=== PATIENT | female | born 1965 | race Caucasian/White ===

== ENCOUNTER → 2020-04-15 09:05 | Outpatient (CLI) | payer BC, SELFPAY ==
--- NOTE | ~2020-04-15 | DEXA_ITS ---
Corrected Repor Order Associated with incorrect exam # 04/18/2020 [facility] Bone Density Report Name: Kandice Hoang Age: 54 Sex: Female Ethnicity: White Date of : 1965 Indication: postmenopausal; screening for osteoporosis; Referring Provider: Bhumika Polanco Study: Bone densitometry was performed. Exam Date: April 15, 2020 Accession number: [id number] Bone Density: Region BMD T-score Z-score Classification AP Spine (L1-L4) 1.003 -0.4 0.7 Normal Femoral Neck (Left) 0.761 -0.8 0.3 Normal Total Hip (Left) 0.869 -0.6 0.1 Normal Femoral Neck (Right) 0.795 -0.5 0.6 Normal Total Hip (Right) 0.853 -0.7 -0.1 Normal Total Hip Mean 0.861 -0.7 0.0 Normal World Health Organization criteria for BMD impression classify patients as: Normal (T-score at or above -1.0), Osteopenia (T-score between -1.0 and -2.5), or Osteoporosis (T-score at or below -2.5). 10-year Fracture Risk: FRAX not reported because: All T-scores for Spine Total, Hip Total, Femoral Neck at or above -1.0 Clinical Information Provided by Patient: Patient maximum height was 62.25 Menopause Age: 53 No regular weight bearing exercise Does not regularly consume dairy products Drinks caffeinated beverages Onset of menses at age 13 Number of children 2 Impression: The patient has normal bone mass. Discussion: BONE DENSITY IS ABOVE THE MINIMUM DESIRABLE LEVEL AT ALL SKELETAL SITES TESTED. This patient?s bone mineral density is above the minimum desirable level (T-score -1.0 or better) at all sites measured. The patient should follow a healthful lifestyle (good nutrition with adequate calcium and vitamin D, and appropriate weight-bearing exercise). Follow-Up: Consider repeating this study in 5 years or sooner if there is some new clinical indication. Reported by: EDELMIRA on 04/15/2020 9:50:00 AM. Reviewed, dictated and finalized at location AJhoana GARCIA
--- NOTE | ~2020-04-15 | MM_ITS ---
EXAMINATION: MM screening alycia BI w nereida HISTORY: Screening mammogram TECHNIQUE: Craniocaudal and mediolateral oblique 3-D tomosynthesis images were obtained and synthetic 2-D images were generated. CAD analysis was submitted and interpreted. COMPARISON: 04/13/2014, 06/23/2012 bilateral digital screening mammogram examinations BREAST PARENCHYMAL COMPOSITION: There are scattered areas of fibroglandular density. FINDINGS: There is no evidence of suspicious mass, calcification, or architectural distortion to sugg est malignancy in either breast. There has been no suspicious interval change. IMPRESSION: 1. No mammographic evidence of malignancy. 2. Recommend routine screening mammography in one year. BI-RADS Category 1: Negative Reviewed, dictated and finalized at location A.
== END ==
PROVIDERS: Visit Provider Student in an Organized Health Care Education/Training Program
DX: Z12.31 Encounter for screening mammogram for malignant neoplasm of breast (principal); Z78.0 Asymptomatic menopausal state
CPT/HCPCS: 77063; 77067; 77080

== ENCOUNTER → 2021-09-29 01:26 | Outpatient (CLI) | payer BC, SELFPAY ==
[2021-09-29 13:33] LABS: SARS-CoV-2 RNA PCR Negative
== END ==
PROVIDERS: PCP Internal Medicine; Visit Provider Internal Medicine Gastroenterology
DX: Z01.812 Encounter for preprocedural laboratory examination (principal); Z20.822 Contact with and (suspected) exposure to COVID-19
CPT/HCPCS: C9803; U0003; U0005

== ENCOUNTER 2021-10-02 00:12 | Day surgery (SDC) | payer BC, SELFPAY ==
[2021-09-20 12:58] VITALS: BMI 26.2
--- NOTE | 2021-10-01 11:03 | P.HP_ITS ---
History of Present Illness History of Present Illness Consent: Risks, benefits, and alternatives have been discussed and questions answered. Patient agrees to proceed with procedure. Chief complaint: neoplasm screening Narrative: Kandice Hoang is a 56 year old female referred for colon cancer screening. This is her 1st colonoscopy Review of Systems Review of Systems: All systems reviewed & are unremarkable except as noted in HPI and below PMFSH Past Medical History Medical History Essential (primary) hypertension Vaginal delivery x 2 Surgical History Surgical History History of cholecystectomy [place] teeth removed Family History Family History Mother Hypertension Family history of blood dyscrasia Family history of thyroid disease Cerebrovascular accident Grandparent Family history of malignant neoplasm of breast in first degree relative Social History Social History Smoking status: Never smoker Second hand tobacco smoke exposure: No Alcohol intake: current Drinks per week: 1 Substance use type: does not use Living arrangements: with family Spiritual care concerns: No Meds Home Medications and Allergies Home Medications Medication Instructions Recorded Confirmed Type loratadine 10 mg tablet 10 mg PO DAILY 07/14/19 10/02/21 History fluticasone propionate 50 2 spray NASAL DAILY PRN #47.4 ml 07/15/19 10/02/21 Rx mcg/actuation nasal spray,suspension esomeprazole magnesium 40 mg 40 mg PO DAILY #90 cap 08/02/20 10/02/21 Rx capsule,delayed release lisinopril 10 mg tablet 10 mg PO DAILY #90 tablet 04/06/21 10/02/21 Rx Allergies Allergy/AdvReac Type Severity Reaction Status Date / Time Sulfa (Sulfonamide Allergy Mild hives Verified 10/02/21 07:42 Antibiotics) Exam Const: General: alert Orientation/consciousness: patient oriented x3 Resp: Auscultation: clear to auscultation bilaterally Cardio: Rhythm: regular rhythm GI: GI Palp: Yes Soft to palpation and No Tenderness to palpation present (GI) Neuro: General: patient oriented x3 Assessment and Plan Assessment and plan (1) Colon cancer screening: Code(s): Z12.11 - Encounter for screening for malignant neoplasm of colon Status: Acute Assessment and Plan: Colonoscopy with possible biopsy or polypectomy or cautery or injection of substances.
[2021-10-02 07:43] VITALS: BP 91/75; PULSE 87; RESP 16; TEMP 37.1; O2SAT 98; BMI 25.6
[2021-10-02] MEDS: LACTATED RINGERS 1,000 ML 150 ML IV CONT (07:51)
--- NOTE | 2021-10-02 08:10 | WPDANESEPPF ---
Anes - Initial Pre Proc Eval Procedure: Operation Date: 10/02/21 09:00 Proposed Procedures p Screening Colonoscopy - Danie Aguilar MD Date/Time: 10/02/21 08:10 Surgeon: Danie Aguilar MD Pre Op Diagnosis: neoplasm screening Patient Data Age: 56 Gender: F Height: 1.57 m Weight: 63.6 kg Last Vital Signs Temp 98.7 F 10/02/21 07:43 Pulse 87 10/02/21 07:43 Resp 16 10/02/21 07:43 BP 91/75 L 10/02/21 07:43 Pulse Ox 98 10/02/21 07:43 Allergies Allergy/AdvReac Type Severity Reaction Status Date / Time Sulfa (Sulfonamide Allergy Mild hives Verified 10/02/21 07:42 Antibiotics) Home Medications Medication Instructions Recorded Confirmed Type loratadine 10 mg tablet 10 mg PO DAILY 07/14/19 10/02/21 History fluticasone propionate 50 2 spray NASAL DAILY PRN #47.4 ml 07/15/19 10/02/21 Rx mcg/actuation nasal spray,suspension esomeprazole magnesium 40 mg 40 mg PO DAILY #90 cap 08/02/20 10/02/21 Rx capsule,delayed release lisinopril 10 mg tablet 10 mg PO DAILY #90 tablet 04/06/21 10/02/21 Rx Patient hx anesthesia problems: none Family hx anesthesia problems: none Results Review: All pre-operative results and documents have been reviewed as part of the pre-operative evaluation. PMFSH Past Medical History Medical History Essential (primary) hypertension Vaginal delivery x 2 Surgical History Surgical History History of cholecystectomy [place] teeth removed Family History Family History Mother Hypertension Family history of blood dyscrasia Family history of thyroid disease Cerebrovascular accident Grandparent Family history of malignant neoplasm of breast in first degree relative Social History Social History Smoking status: Never smoker Second hand tobacco smoke exposure: No Alcohol intake: current Drinks per week: 1 Substance use type: does not use Living arrangements: with family Spiritual care concerns: No Anes - Eval Final PreProcedure Day of Procedure 10/02/21 08:10 Patient weight: normal Heart: regular rate and rhythm Lungs: clear to auscultation Airway: Mallampati scale class II Neurological: alert and oriented Last oral intake: >/= 8 hours ASA classification: II Emergent: no Anesthetic plan: proceed Anesthesia type and monitoring: general GIVS and standard monitoring Results Review: All pre-operative results and documents have been reviewed as part of the pre-operative evaluation. Informed Consent: The patient's anesthetic plan and its attendant risks and benefits were discussed with the patient/family/POA. Questions were solicited and answers provided to the satisfaction of the patient/family/POA.
[2021-10-02] MEDS: SIMETHICONE ORAL SUSPENSION 20 MG/0.3 ML 30 ML BOTTLE 0.6 ML IRRIGATION (08:52)
[2021-10-02 09:06] VITALS: BP 97/69; PULSE 97; RESP 16; O2SAT 97
[2021-10-02 09:16] VITALS: BP 111/76; PULSE 77; RESP 15; O2SAT 100
[2021-10-02 09:26] VITALS: BP 127/76; PULSE 77; RESP 17; O2SAT 100
== END 2021-10-02 09:35 | disposition home or self-care (01) ==
PROVIDERS: PCP Internal Medicine; Visit Provider Internal Medicine Gastroenterology
PROC: 0DJD8ZZ Inspection of Lower Intestinal Tract, Via Natural or Artificial Opening Endoscopic (ICD-10-PCS; CPT 45378; principal; 2021-10-02 09:00)
DX: Z12.11 Encounter for screening for malignant neoplasm of colon (principal); K62.1 Rectal polyp; I10 Essential (primary) hypertension
CPT/HCPCS: 45380; 88305; C9803; J2704; J7120; U0003; U0005

== ENCOUNTER 2021-10-21 07:32 | Outpatient (CLI) | payer BC, SELFPAY ==
--- NOTE | 2021-10-21 07:36 | ECG_ITS ---
Measurements Intervals [place] Rate: 72 P: 15 [place]: 140 QRS: 51 QRSD: 82 T: 59 QT: 388 QTc: 425 Interpretive Statements SINUS RHYTHM NO PREVIOUS ECG AVAILABLE FOR COMPARISON Electronically Signed On 10-21-2021 13:33:30 CDT by Puja Solis M.D.
[2021-10-21 09:10] LABS: SARS-CoV-2 RNA PCR Negative (Negative)
== END 2021-10-21 07:33 | disposition home or self-care (01) ==
LOC: CHSCARD 07:36
PROVIDERS: PCP Internal Medicine; Visit Provider Surgery
DX: Z01.818 Encounter for other preprocedural examination (principal); I10 Essential (primary) hypertension; Z20.822 Contact with and (suspected) exposure to COVID-19
CPT/HCPCS: 93005; C9803; U0003; U0005

== ENCOUNTER 2021-10-25 01:18 | Day surgery (SDC) | payer BC, SELFPAY ==
[2021-10-16 13:50] VITALS: BMI 25.5
--- NOTE | 2021-10-16 14:11 | PC.NURSE ---
Report to the Outpatient Waiting Room, entrance under the green pavilion located off [facility], at time _0730_ on date _10-25-2021_. OR Time: _0930_. - You and your visitor will be asked a series of questions to screen for COVID 19 for your protection. - A mask is required within the hospital. Preoperative COVID Testing Requirements: Covid test to be done at [place] 10-21-2021. No COVID Test needed if: (proof is required; if not received patient will have Rapid Test prior to entry) - Patient has received COVID Vaccine at least 14 days prior to procedure date or - Patient has positive COVID test result within last 90 days of surgery date. COVID Test needed if above criteria is not met If not COVID vaccinated a COVID test must be conducted within 72 hours of surgery and patient is asked to isolate self from time of testing until procedure. You will go to the [facility] for your COVID testing. The [facility] site is located at the corner of [address] from [facility]. You will only be called if COVID results are positive and your surgeon may reschedule your elective surgery date. Patients may have clear liquids (water, carbonated beverages, clear teas, apple juice) until 3 hours prior to surgery with a maximum of 20 ounces. - No food from midnight until time of surgery - Infants may have breast milk until 4 hours before surgery, formula 6 hours prior to surgery. - Children will be allowed to drink immediately following surgery. If applicable, please bring a bottle or sippy cup to assist with drinking. Juice, water, soda, and popsicles are readily available. For infants on formula, please bring formula the day of surgery. Pacifiers are allowed. Take the following medications with a SIP of water the morning of surgery: ___None Medications to discontinue per physician __1-Db Goddess and 1 Db Thyro-drive Date to take last [id number] Please no make-up, nail nepali, hairspray, perfume, deodorant, or body powder the day of surgery. No jewelry (including any body piercings) or valuables the day of surgery, leave them at home. Please take a shower or bath the night before, or the morning of, surgery with an antibacterial soap. Wear comfortable, loose fitting clothing. Children are encouraged to wear pajamas. - Jewelry must be removed prior to entering the operating room. Rings and piercings that are not removed may be cut off. - The hospital will not accept responsibility for valuables. - Please leave all valuables, including medications, at home the day of surgery. If you are going home after surgery, a licensed company truck driver must drive you home. - NO public transportation without another adult. - We recommend that an adult stay with you for 24 hours following discharge. - We also recommend that you do not drive, make important decision, drink alcoholic beverages, or take any drugs that were not prescribed by your health care provider for at least 24 hours after your discharge time. For Pediatric surgeries, we recommend two adults accompany the child home (only one inside the building at this time). One visitor will be allowed to accompany the patient into the hospital. Patients visitor will be instructed to remain with patient at all times or leave the building. We will allow the visitor to come back to the postoperative area when patient is ready. Follow any additional instructions given to you from your surgeon. Telephone instructions given to __Patient and asked if any additional questions and then verbalized understanding. Patient advised to call surgeon office or pre surgery nurse liaison [phone] if any additional questions.
[2021-10-25] VITALS (7 sets, daily range): BP systolic 112–137; BP diastolic 68–81; PULSE 61–80; RESP 11–16; TEMP 36.3–36.5; O2SAT 96–100
[2021-10-25] MEDS: LACTATED RINGERS 1,000 ML 30 ML IV CONT ×2 (08:00→10:41)
[2021-10-25] MEDS: ACETAMINOPHEN 500 MG TABLET 1000 MG PO (08:02)
[2021-10-25] MEDS: KETOROLAC 15 MG/ML VIAL (*BKC) IV PUSH (08:02)
--- NOTE | 2021-10-25 09:34 | WPDHPUPDATE1 ---
History and Physical Update Update Date/Time: 10/25/21 09:34 History and Physical has been reviewed, including an updated exam of the patient. There are NO changes in the patient's condition. Risks, benefits, and alternatives have been discussed and questions answered. Patient agrees to proceed with procedure.
--- NOTE | 2021-10-25 09:45 | WPDANESEPPF ---
Anes - Initial Pre Proc Eval Procedure: Operation Date: 10/25/21 09:30 Proposed Procedures p Rectal Exam Under Anesthesia, Excision Rectal Polyp - Torres Sepulveda DO Date/Time: 10/25/21 09:45 Surgeon: Torres Sepulveda DO Pre Op Diagnosis: rectal polyp Patient Data Age: 56 Gender: F Height: 1.57 m Weight: 65.8 kg Last Vital Signs Temp 36.3 C L 10/25/21 07:37 Pulse 76 10/25/21 07:37 Resp 16 10/25/21 07:37 BP 137/81 10/25/21 07:37 Pulse Ox 100 10/25/21 07:37 Allergies Allergy/AdvReac Type Severity Reaction Status Date / Time Sulfa (Sulfonamide Allergy Mild hives Verified 10/25/21 08:06 Antibiotics) Home Medications Medication Instructions Recorded Confirmed Type loratadine 10 mg tablet 10 mg PO DAILY 07/14/19 10/25/21 History fluticasone propionate 50 2 spray NASAL DAILY PRN #47.4 ml 07/15/19 10/25/21 Rx mcg/actuation nasal spray,suspension esomeprazole magnesium 40 mg 40 mg PO DAILY #90 cap 08/02/20 10/25/21 Rx capsule,delayed release lisinopril 10 mg tablet 10 mg PO DAILY #90 tablet 10/03/21 10/25/21 Rx 1=Db Goddess 1 tab-cap PO DAILY 10/16/21 10/25/[address] 1 tab-cap PO DAILY 10/16/21 10/25/21 History Patient hx anesthesia problems: none Family hx anesthesia problems: none Results Review: All pre-operative results and documents have been reviewed as part of the pre-operative evaluation. [facility] Past Medical History Medical History Essential (primary) hypertension GERD (gastroesophageal reflux disease) Kidney stones Vaginal delivery x 2 Surgical History Surgical History History of cholecystectomy [place] teeth removed Family History Family History Mother Hypertension Family history of thyroid disease Cerebrovascular accident Grandparent Family history of malignant neoplasm of breast in first degree relative Social History Social History Smoking status: Never smoker Second hand tobacco smoke exposure: No Alcohol intake: current Alcohol use details: Rarely Substance use: never Substance use type: does not use 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 Informed Consent: The patient's anesthetic plan and its attendant risks and benefits were discussed with the patient/family/POA. Questions were solicited and answers provided to the satisfaction of the patient/family/POA.
[2021-10-25] MEDS: ceFAZolin 2 GM/D5W 50 ML 2 GM/50 ML BAG IVPB (09:59)
--- NOTE | 2021-10-25 10:29 | P.OP_ITS ---
Procedure Note - Detailed Date of Procedure 10/25/21 Pre-op Diagnosis rectal polyp Post-op Diagnosis Same Procedure Performed Rectal exam under anesthesia, excision 2 cm distal rectal polyp Surgeon Torres Sepulveda, DO Anesthesia MAC (LMA) Indications This is a 56-year-old woman who was found to have a distal rectal polyp on recent colonoscopy. This was a slightly larger polyp that was too close to the anal verge to safely remove during endoscopy. She was then referred for surgical resection. On digital rectal exam the polyp was palpable in the left posterior location. Discussions were made with the patient about treatment options and decision was made to proceed with rectal exam under anesthesia with excision of rectal polyp. Findings Rectal exam under anesthesia was performed. The rectal polyp was identified in the left posterior location. This was located about 1 cm proximal to the dentate line. The polyp was completely excised and sent to the lab for pathology. No other rectal abnormalities were noted. Description of Procedure Procedure as well as risks, benefits, and alternatives were discussed with the patient. Written consent was obtained and placed in chart prior to procedure. Patient was brought back to surgical suite. She was placed supine on operating table. Time-out was done to confirm patient and procedure. IV sedation was administered by the anesthesia department. She was positioned into dorsal lithotomy position. Her perirectal area was prepped and draped in sterile fashion using Betadine prep. Digital rectal exam was initially performed. A Hill-Ricketts anoscope was then inserted and the anal rectal canal was carefully inspected circumferentially. The rectal polyp was identified in the left posterior location about 1 cm proximal to the dentate line. The polyp was gently lifted into the lumen and a LigaSure bipolar cautery device was used to clamp across the base of the polyp and completely excise it. The polyp was completely excised and sent to the lab for pathology. The area was carefully inspected and hemostasis appeared adequate and no other abnormalities were noted. The anoscope was then removed. The patient was then awakened from an esthesia and transferred to recovery. Estimated Blood Loss 2 Pathology Yes (Rectal polyp) Complications No immediate complications Condition Stable Disposition Same day
== END 2021-10-25 11:52 | disposition home or self-care (01) ==
PROVIDERS: PCP Internal Medicine; Visit Provider Surgery
PROC: (CPT 46610; principal; 2021-10-25 09:30)
DX: C19 Malignant neoplasm of rectosigmoid junction (principal); I10 Essential (primary) hypertension; K21.9 Gastro-esophageal reflux disease without esophagitis
CPT/HCPCS: 46610; 88305; A9270; C9290; J0690; J1100; J1885; J2250; J2405; J2704; J3010; J7120

== ENCOUNTER 2021-10-31 10:27 | Outpatient (CLI) | payer BC, SELFPAY ==
--- NOTE | ~2021-10-31 | MR_ITS ---
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 No focal abnormal enhancement is id entified at the site of the excision two suggest local malignancy. However, there is a 1.6 x 1.3 cm l eft pelvic internal iliac/obturator chain lymph noted. No additional suspicious lymphadenopathy is id entified. There are no dilated loops of bowel. No osseous abnormalities are identified. The bladder a ppears normal. There is a 1.6 cm fibroid of the uterine fundus. IMPRESSION: 1. Left pelvic lymph nodes suspicious for metastatic disease. 2. No definite abnormal enhancement at the polypectomy site. Reviewed, dictated and finalized at location A.
[2021-10-31 11:12] LABS: Estimated Glomerular Filt Rate > 60
== END 2021-10-31 10:28 | disposition home or self-care (01) ==
PROVIDERS: PCP Internal Medicine; Visit Provider Surgery
DX: C20 Malignant neoplasm of rectum (principal)
CPT/HCPCS: 72197; A9577

== ENCOUNTER 2021-11-09 00:44 | Day surgery (SDC) | payer BC, SELFPAY ==
[2021-11-06 16:05] VITALS: BMI 26.6
--- NOTE | 2021-11-06 16:27 | PC.NURSE ---
Report to the Outpatient Waiting Room, entrance under the green pavilion located off [facility], at time 0700 on date 11/09/21_. OR Time: 0900_. - You and your visitor will be asked a series of questions to screen for COVID 19 for your protection. - Only one visitor is allowed at this time. - The patient visitor is requested to leave or wait in car when not with patient. - A mask is required within the hospital. Patients may have clear liquids (water, carbonated beverages, clear teas, apple juice) until 3 hours prior to surgery with a maximum of 20 ounces. - No food from midnight until time of surgery - Infants may have breast milk until 4 hours before surgery, infant formula 6 hours prior to surgery. - Children will be allowed to drink immediately following surgery. If applicable, please bring a bottle or sippy cup to assist with drinking. Juice, water, soda, and popsicles are readily available. For infants on formula, please bring formula the day of surgery. Pacifiers are allowed. Take the following medications with a SIP of water the morning of surgery: n/a Medications to discontinue per physician supplements, vitamins Date to take last dose 11/06/21 Please no make-up, nail german, hairspray, perfume, deodorant, or body powder the day of surgery. No jewelry (including any body piercings) or valuables the day of surgery, leave them at home. Please take a shower or bath the night before, or the morning of, surgery with an antibacterial soap. Wear comfortable, loose fitting clothing. Children are encouraged to wear pajamas. - Jewelry must be removed prior to entering the operating room. Rings and piercings that are not removed may be cut off. - The hospital will not accept responsibility for valuables. - Please leave all valuables, including medications, at home the day of surgery. If you are going home after surgery, a licensed school bus driver must drive you home. - NO public transportation without another adult. - We recommend that an adult stay with you for 24 hours following discharge. - We also recommend that you do not drive, make important decision, drink alcoholic beverages, or take any drugs that were not prescribed by your health care provider for at least 24 hours after your discharge time. For Pediatric surgeries, we recommend two adults accompany the child home (only one inside the building at this time). Follow any additional instructions given to you from your surgeon. If you or anyone in your household have experienced Covid symptoms in the past week, please notify your surgeon or the nurse liaison at the phone number below for possible testing. Telephone instructions given to Kandice Hoang and asked if any additional questions and then verbalized understanding. Patient advised to call surgeon office or pre surgery nurse liaison [phone] if any additional questions.
[2021-11-09] VITALS (7 sets, daily range): BP systolic 98–129; BP diastolic 61–87; PULSE 63–85; RESP 10–18; TEMP 36.3; O2SAT 99–100
[2021-11-09] MEDS: ACETAMINOPHEN 500 MG TABLET 1000 MG PO (07:56)
--- NOTE | 2021-11-09 07:57 | P.PNAN_ITS ---
Anes - Initial Pre Proc Eval Procedure: Operation Date: 11/09/21 09:00 Proposed Procedures p Excision of Rectal Cancer - Torres Sepulveda DO Date/Time: 11/09/21 07:57 Surgeon: Torres Sepulveda DO Pre Op Diagnosis: rectal cancer Patient Data Age: 56 Gender: F Height: 1.57 m Weight: 66 kg Allergies Allergy/AdvReac Type Severity Reaction Status Date / Time Sulfa (Sulfonamide AdvReac Mild Fainting Verified 11/09/21 07:48 Antibiotics) Home Medications Medication Instructions Recorded Confirmed Type loratadine 10 mg tablet 10 mg PO DAILY 07/14/19 11/09/21 History fluticasone propionate 50 2 spray NASAL DAILY PRN #47.4 ml 07/15/19 11/09/21 Rx mcg/actuation nasal spray,suspension esomeprazole magnesium 40 mg 40 mg PO DAILY #90 cap 08/02/20 11/09/21 Rx capsule,delayed release lisinopril 10 mg tablet 10 mg PO DAILY #90 tablet 10/03/21 11/09/21 Rx 1=Db Goddess 1 tab-cap PO DAILY 10/16/21 11/09/21 [address] Thyro-Drive 1 tab-cap PO DAILY 10/16/21 11/09/21 History multivitamin [A To Z Multivitamin] 1 tablet PO DAILY 11/06/21 11/09/21 History Patient hx anesthesia problems: none Family hx anesthesia problems: none Results Review: All pre-operative results and documents have been reviewed as part of the pre-operative evaluation. [facility] Past Medical History Medical History Essential (primary) hypertension GERD (gastroesophageal reflux disease) Kidney stones Vaginal delivery x 2 Surgical History Surgical History History of cholecystectomy History of excision of lesion 10/25/21 Rectal exam under anesthesia, excision 2 cm distal rectal polyp [place] teeth removed Family History Family History Mother Hypertension Family history of thyroid disease Cerebrovascular accident Grandparent Family history of malignant neoplasm of breast in first degree relative Social History Social History Smoking status: Never smoker Second hand tobacco smoke exposure: No Alcohol intake: current Alcohol use details: Rarely Substance use: never Substance use type: does not use Living arrangements: with family 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 Informed Consent: The patient's anesthetic plan and its attendant risks and benefits were discussed with the patient/family/POA. Questions were solicited and answers provided to the satisfaction of the patient/family/POA.
[2021-11-09] MEDS: LACTATED RINGERS 1,000 ML 30 ML IV CONT (08:02)
--- NOTE | 2021-11-09 08:32 | WPDHPUPDATE1 ---
History and Physical Update Update Date/Time: 11/09/21 08:32 History and Physical has been reviewed, including an updated exam of the patient. There are NO changes in the patient's condition. Risks, benefits, and alternatives have been discussed and questions answered. Patient agrees to proceed with procedure.
[2021-11-09] MEDS: KETOROLAC 15 MG/ML VIAL (*BKC) IV PUSH (08:38)
[2021-11-09] MEDS: ceFAZolin 2 GM/D5W 50 ML 2 GM/50 ML BAG IVPB (09:00)
[2021-11-09] MEDS: LIDO 1%/EPINEPHRINE/PF 1:200,000 30 ML VIAL XX (09:38)
--- NOTE | 2021-11-09 09:38 | SUR.OPER ---
Spot endoscopic tattoo ink used 5 ml at surgical site. See operative note. Lot # [id number] Ref# [id number] exp 07/03/2023
--- NOTE | 2021-11-09 09:44 | P.OP_ITS ---
Procedure Note - Detailed Date of Procedure 11/09/21 Pre-op Diagnosis rectal cancer Post-op Diagnosis Same Procedure Performed 1. Transanal full-thickness excision rectal cancer 2. Anoscopy with injection of tattoo ink around excision Surgeon Torres Sepulveda, DO Anesthesia General and Local (1% lidocaine with epinephrine) Indications This is a 56-year-old woman who presented with a recent finding of cancer. She had a large rectal polyp that was to be excised endoscopically how close it was to anal verge. Excision was performed with anoscopy me pathology showed evidence cancer with the margins involved. An MRI of her pelvis was performed this did not show any deep involvement of the rectum but there was 1 possible distant iliac lymph node that was enlarged. Discussions were made the patient further treatment options and decision was made to re-excise the rectal cancer positive margins for complete excision and full-thickness staging. Findings The previous area of polyp excision was identified in the left posterior region about 1 cm from the dentate line. A wide ellipse was made around this region with a 15 blade scalpel. This was extended through the muscularis to perform a full-thickness excision. The specimen was marked with a nylon suture distally to help with margin determination. No other abnormalities were noted. After closure, the submucosa was infiltrated with spot tattoo ink to help further identify this area in the future. Description of Procedure Procedure as well as risks, benefits, and alternatives were discussed with the patient. Written consent was obtained and placed in chart prior to procedure. Patient was brought back to surgical suite. She was placed supine on operating table. Time-out was done to confirm patient and procedure. She was then intubated by the anesthesia department. She was repositioned into dorsal lithotomy position. Her perirectal region was prepped and draped in sterile fashion using Betadine prep. Digital rectal exam was initially performed and then a medium Hill-Ricketts anoscope was inserted. The anal rectal canal was carefully inspected. The ulcer was identified in the left posterior region from the recent excision of the malignant polyp. 1% lidocaine with epinephrine was infiltrated around the region. An elliptical incision was made around this area using a 15 blade scalpel and this incision was carried full-thickness through the rectal layers. The rectal cancer was completely excised using the 15 blade scalpel. The distal margin was marked with a short nylon suture. The specimen was sent to the lab for pathology. The anal mucosa and anoderm was then reapproximated using 2-0 chromic simple interrupted sutures. The area was irrigated and hemostasis appeared adequate and no other abnormalities were n oted. Spot tattoo ink was then infiltrated around the excision region circumferentially for a total of 5 mL. One final inspection was made around the anal rectal canal with the Brent anoscope. No other abnormalities were noted. The anoscope was removed. A fluff gauze, ABD pad, and mesh underwear were applied. The patient was then awakened from anesthesia, extubated, and transferred to recovery. Estimated Blood Loss 20 Pathology Yes (Rectal cancer, nylon suture distal) Complications No immediate complications Condition Stable Disposition Same day [facility] Billing Surgery - Charge Forward: Surgery Billing
== END 2021-11-09 11:30 | disposition home or self-care (01) ==
PROVIDERS: PCP Internal Medicine; Visit Provider Surgery
PROC: (CPT 45172; principal; 2021-11-09 09:00)
DX: C20 Malignant neoplasm of rectum (principal); K62.6 Ulcer of anus and rectum; I10 Essential (primary) hypertension; K21.9 Gastro-esophageal reflux disease without esophagitis
CPT/HCPCS: 45172; 88305; A9270; C9290; J0690; J1100; J1885; J2250; J2405; J2704; J3010; J7120

== ENCOUNTER → 2022-05-29 11:54 | Outpatient (CLI) | payer BC, SELFPAY ==
--- NOTE | ~2022-05-29 | MR_ITS ---
EXAMINATION: MR pelvis wo/w con DATE: 05/29/2022 13:50 INDICATION: Rectal cancer. TECHNIQUE: Magnetic resonance imaging (MRI) of the pelvis was performed without and with 13 mL MultiH ance intravenous contrast. COMPARISON: Pelvis MRI 10/31/2021, CT abdomen and pelvis 06/14/2017 FINDINGS: There are no dilated loops of bowel. The rectum is unremarkable. There is a 1.8 x 1.3 cm left interna l iliac node, which measured 1.7 x 1.3 cm on 06/14/17. There is no free intraperitoneal fluid. There is a 1.7 cm subserosal uterine fibroid. IMPRESSION: 1. Enlarged left internal iliac lymph node, stable from 10/31/2021 and new from 06/14/2017, consistent with metastatic disease. Reviewed, dictated and finalized at location E. C SOFTWARE ENGINEER
== END ==
PROVIDERS: PCP Internal Medicine; Visit Provider Surgery
DX: C20 Malignant neoplasm of rectum (principal); R59.0 Localized enlarged lymph nodes
CPT/HCPCS: 72197; A9577

== ENCOUNTER 2022-06-21 09:01 | Outpatient (CLI) | payer BC, SELFPAY ==
[2022-06-11 15:31] VITALS: BMI 26.6
--- NOTE | 2022-06-11 15:31 | PC.NURSE ---
Pre Radiology instructions Report [facility] the [facility] at 0900 on date 06/21/22. Procedure Time: 1100 YOU MAY BE MONITORED AT HOSPITAL FOR UP TO 4 HOURS AFTER YOUR PROCEDURE. A visitors will be allowed to accompany the patient into the hospital. ?The visitor will be instructed to remain with patient at all times or POSSIBLY leave the building due to restrictions.? We will allow the visitor to come back to the postoperative area when patient is ready.? NO children visitors allowed at this time. You and your visitor will be asked to self-screen and do not enter if you have any COVID symptoms. A mask is REQUIRED within the hospital. Patients are to have no food or drink 6 hours prior to procedure time Driving will be restricted after the procedure, you must have a person to drive you home. Labs will be drawn in preop area and once reviewed, you will be taken to radiology area for procedure. When the procedure is completed, you will be taken to outpatient where you will be monitored for several hours. You may have one visitor in this area. Other than holding anti-coagulants, patient may take other medication(s) as scheduled. Prior to your appointment date patients are instructed to hold anti-coagulants after discussing with ordering provider to stop. If unable to discontinue anti-coagulants please notify radiologist. ? No aspirin or warfarin (Coumadin) for 7 days prior to the procedure. ? No clopidogrel (Plavix), ticagrelor (Brilinta), prasugrel (Effient) or dabigatran (Pradaxa) for 5 days prior to the procedure. ? No rivaroxaban (Xarelto), apixaban (Eliquis), dipyridamole (Aggrenox or Persantine) or cilostazol (Pletal) for 2 days prior to the procedure. Medications to discontinue per physician: N/A Date to take last dose: N/A Please leave all valuables, including medications, at home the day of procedure. The hospital will not accept responsibility for valuables. Wear comfortable, loose fitting clothing.? Follow any additional instructions given to you from ordering provider. Telephone instructions given to KATEY QUEEN and asked if any additional questions and then verbalized understanding. Patient advised to call scheduling provider office or registration scheduling [phone] if any additional questions.
[2022-06-21] VITALS (13 sets, daily range): BP systolic 108–137; BP diastolic 76–94; PULSE 65–75; RESP 16; TEMP 36.9; O2SAT 95–97
--- NOTE | ~2022-06-21 | CT_ITS ---
EXAMINATION: CT biopsy lymph node DATE: 06/21/2022 12:07 INDICATION: Enlarged left iliac lymph node TECHNIQUE: The procedure including the risks and benefits was discussed with the patient. Risks discu ssed included bleeding, nerve injury, infection and allergic reaction. The patient understood the ris ks and agreed to proceed. The skin overlying the anterior left hemipelvis was prepped and draped in usual sterile fashion. Anesthetic was administered with 1% lidocaine subcutaneously. A 18 gauge out er needle was advanced under CT guidance to the lesion of interest. An 20 gauge core biopsy needle wa s then advanced into the lesion. 6 core biopsy specimens were obtained. The outer needle was removed and the entry site was cleaned and dressed. There were no immediate complications. The dose-length p roduct was 330.95 mGy-cm. FINDINGS: CT images demonstrate the outer needle tip along side a 1.5 x 1.2 cm left internal iliac ch ain nodule. Couple subsequent images demonstrate the biopsy needle advanced through the nodule of con cern. IMPRESSION: 1. Successful CT-guided biopsy of a 1.5 x 1.2 cm nodule, potentially an enlarged lymph node along the left internal iliac chain. Reviewed, dictated and finalized at location A. DCAST OPERATIONS TECHNICIAN IMPRESSION: 1. Successful CT-guided biopsy of a 1.5 x 1.2 cm nodule, potentially an enlarge d lymph node along the left internal iliac chain.
[2022-06-21 10:01] LABS: Mean Platelet Volume 9.9 fl (7.4-10.4); Platelet Count Result 201 k/mm3 (150-375)
== END 2022-06-21 16:11 | disposition home or self-care (01) ==
PROVIDERS: PCP Internal Medicine; Referring Provider Surgery; Visit Provider Radiology Diagnostic Radiology
PROC: (CPT 77012; principal; 2022-06-21 11:00)
DX: C20 Malignant neoplasm of rectum (principal); C77.5 Secondary and unspecified malignant neoplasm of intrapelvic lymph nodes
CPT/HCPCS: 36415; 38505; 77012; 85049; 85610; 88305

== ENCOUNTER 2023-01-15 08:54 | Outpatient (CLI) | payer BC, SELFPAY ==
--- NOTE | ~2023-01-15 | PE_ITS ---
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 10.067 mCi of 18-fluorodeoxyglucose (18-FDG) was administer ed i.v. Low dose computed tomography (CT) images were acquired from the base of the brain to the prox imal thighs for attenuation correction and anatomic localization. Positron emission tomography (PET) images were acquired in the same distribution beginning 69 minutes after injection. Images including fused PET/CT images were reconstructed in axial, coronal, and sagittal planes. Automated exposure con trol technique was employed. The dose-length product was 481.20mGy-cm. COMPARISON: Pelvis MRI dated 05/29/2022 FINDINGS: Head/neck: There is symmetric increased activity in the oral cavity, palatine tonsils, parotid glands, submandi bular glands, laryngeal muscles and ocular muscles without CT correlate, likely physiologic. No patho logically enlarged cervical lymphadenopathy or suspicious foci of increased FDG uptake in the visuali zed head or neck. Chest: 3 mm nodule along the right major fissure which is without evident FDG activity most likely represent ing normal intrafissural lymph node. Small calcified nodules at the superior segment of the left lowe r lobe consistent with old granulomatous disease. No other suspicious pulmonary nodules, pneumonia, p ulmonary edema or pleural effusion. Heart size is normal. No pericardial effusion. Thoracic aorta is normal in caliber. No pathologically enlarged or FDG avid thoracic lymphadenopathy. Abdomen/pelvis/proximal thighs: Physiologic renal accumulation and excretion of FDG activity in the kidneys, bladder and along portio ns of ureters. Bilateral nonobstructing nephrolithiasis with at least 4 stones in the left kidney jesu suring up to 3 mm and 2 stones in the right kidney measuring up to 4 mm. There is a heterogeneous pat tern of decreased attenuation throughout the liver most prominent in the right hepatic lobe. There is a normal degree and heterogeneous pattern of increased uptake throughout the liver with no discernib le difference between the regions of decreased attenuation the right hepatic lobe and the more normal attenuation in left hepatic lobe which would favor hepatic steatosis over metastatic disease. Cholec ystectomy clips at the gallbladder fossa. The pancreas, spleen and bilateral adrenal glands are krista l. Mild uptake scattered throughout the bowels without radiologic correlate, also likely physiologic. No abnormal increased FDG uptake associated with the biopsied left internal iliac chain lymph node w hich is decreased in size from 1.7 x 1.3 cm the time of the prior MRI 2 7 x 4 mm on the current study consistent with interval response to treatment. Calcified fibroid at the uterine fundus. There is an oblong region of mild increased uptake extending proximally 4.5 cm posteriorly from the right asphalt tile floor layer ior bladder and measuring approximately 2 cm in maximal orthogonal dimensions with maximal SUV of 7.1 . The level of activity significantly lower than the level of urinary activity in the bladder. The re gion which appears to lie posterior to the expected course of the distal right ureter extends across the right side of the cephalad aspect of the vaginal vault as well as the more anterior and posterior fat, not conforming to the anatomic boundaries as visualized on the CT imaging. This could be relate d to shifting of the position of the organs in the pelvis due to progressive expansion of the bladder or movement of the sigmoid colon. . No other abnormal foci of increased FDG uptake or pathologically enlarged lymphadenopathy in the abdomen, pelvis or proximal thighs. Musculoskeletal: Diffuse increased marrow activity without radiologic correlate which could be related to marrow stimu lation either due to anemia or chemotherapy. No suspicious lytic or ana rosa
[2023-01-15 09:30] LABS: Glucose Point of Care 85 mg/dl (65-105)
== END 2023-01-15 08:55 | disposition home or self-care (01) ==
PROVIDERS: PCP Internal Medicine; Visit Provider Internal Medicine Medical Oncology
DX: C20 Malignant neoplasm of rectum (principal)
CPT/HCPCS: 78815; A9552

== ENCOUNTER 2023-01-28 01:26 | Day surgery (SDC) | payer BC, SELFPAY ==
[2023-01-16 13:25] VITALS: BMI 19.8
--- NOTE | 2023-01-25 15:15 | PM.HPGS ---
History of Present Illness History of Present Illness Consent: Risks, benefits, and alternatives have been discussed and questions answered. Patient agrees to proceed with procedure. Chief complaint: hx of colon ca Narrative: Kandice Hoang is a 57 year old female Here for surveillance colonoscopy 1 year after having been found to have a rectal cancer. She had a colonoscopy revealing a large polypoid rectal mass. Biopsies showed high-grade dysplasia. She was seen by Dr. Sepulveda, who performed transanal resection. Unfortunately the margins showed residual cancer. Subsequent surgical resection of the base did not reveal any additional neoplastic tissue. Later however she had a pelvic MRI and was found to have an abnormal appearance some lymph nodes. Biopsy to confirm metastatic carcinoma. She was then treated with radiation and chemotherapy and has been determined to be in complete remission at this time Review of Systems Review of Systems: All systems reviewed & are unremarkable except as noted in HPI and below PMFSH Past Medical History Medical History Essential (primary) hypertension GERD (gastroesophageal reflux disease) History of radiation therapy Kidney stones Rectal cancer Vaginal delivery x 2 Surgical History Surgical History History of cholecystectomy History of excision of lesion . Transanal full-thickness excision rectal cancer 2. Anoscopy with injection of tattoo ink around excision 10/25/21 Rectal exam under anesthesia, excision 2 cm distal rectal polyp [place] teeth removed Family History Family History Mother Hypertension Family history of thyroid disease Cerebrovascular accident Grandparent Family history of malignant neoplasm of breast in first degree relative Social History Social History Smoking status: Never smoker Second hand tobacco smoke exposure: No Alcohol intake: never Alcohol use details: Rarely Substance use: never Substance use type: does not use Lack of Transportation: No Lack of Food: Never True Current Housing: I Have Housing Concerned About Future Housing: No Difficulty Paying Gas/Electric Bills: No Difficulty Paying for Meds: No Currently Unemployed: No Education: Bachelor's Degree Difficulty w/ Childcare or Family Care: No Living arrangements: with family Occupation/Education: occupation 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 Spiritual care concerns: No Meds Home Medications and Allergies Home Medications Medication Instructions Recorded Confirmed Type fluticasone propionate 50 2 spray intranasal DAILY PRN nasal 07/15/19 01/16/23 Rx mcg/actuation nasal congestion #47.4 mL spray,suspension esomeprazole magnesium 40 mg 40 mg PO DAILY generic #90 caps 08/02/20 01/16/23 Rx capsule,delayed release (Nexium) lisinopril 10 mg tablet 10 mg PO DAILY #90 tabs 09/28/22 01/16/23 Rx pyridoxine (vitamin B6) 25 mg 25 mg PO DAILY 10/09/22 01/16/23 History tablet Allergies Allergy/AdvReac Type Severity Reaction Status Date / Time Sulfa (Sulfonamide AdvReac Mild Fainting Verified 01/28/23 07:31 Antibiotics) Exam Const: General: alert Orientation/consciousness: patient oriented x3 Resp: Auscultation: clear to auscultation bilaterally Cardio: Rhythm: regular rhythm GI: GI Palp: Yes Soft to palpation and No Tenderness to palpation present (GI) Neuro: General: patient oriented x3 Assessment and Plan Assessment and plan (1) Rectal cancer: Code(s): C20 - Malignant neoplasm of rectum Status: Acute Assessment and Plan: Colonoscopy with possible biopsy or polypectomy or cautery or injection of substances.
[2023-01-28 07:32] VITALS: BP 100/73; PULSE 91; RESP 16; TEMP 36.2; O2SAT 100
[2023-01-28] MEDS: LACTATED RINGERS 1,000 ML 150 ML IV CONT (07:39)
--- NOTE | 2023-01-28 08:04 | WPDANESEPPF ---
Anes - Initial Pre Proc Eval Procedure: Operation Date: 01/28/23 08:30 Proposed Procedures p Colonoscopy - Danie Aguilar MD Date/Time: 01/28/23 08:04 Surgeon: Danie Aguilar MD Pre Op Diagnosis: hx of colon ca Patient Data Age: 57 Gender: F Height: 1.57 m Weight: 53 kg Last Vital Signs Temp 36.2 C L 01/28/23 07:32 Pulse 91 01/28/23 07:32 Resp 16 01/28/23 07:32 BP 100/73 01/28/23 07:32 Pulse Ox 100 01/28/23 07:32 O2 Del Method Room Air 01/28/23 07:32 Allergies Allergy/AdvReac Type Severity Reaction Status Date / Time Sulfa (Sulfonamide AdvReac Mild Fainting Verified 01/28/23 07:31 Antibiotics) Home Medications Medication Instructions Recorded Confirmed Type fluticasone propionate 50 2 spray intranasal DAILY PRN nasal 07/15/19 01/16/23 Rx mcg/actuation nasal congestion #47.4 mL spray,suspension esomeprazole magnesium 40 mg 40 mg PO DAILY generic #90 caps 08/02/20 01/16/23 Rx capsule,delayed release (Nexium) lisinopril 10 mg tablet 10 mg PO DAILY #90 tabs 09/28/22 01/16/23 Rx pyridoxine (vitamin B6) 25 mg 25 mg PO DAILY 10/09/22 01/16/23 History tablet Patient hx anesthesia problems: none Family hx anesthesia problems: none Results Review: All pre-operative results and documents have been reviewed as part of the pre-operative evaluation. [facility] Past Medical History Medical History Essential (primary) hypertension GERD (gastroesophageal reflux disease) History of radiation therapy Kidney stones Rectal cancer Vaginal delivery x 2 Surgical History Surgical History History of cholecystectomy History of excision of lesion . Transanal full-thickness excision rectal cancer 2. Anoscopy with injection of tattoo ink around excision 10/25/21 Rectal exam under anesthesia, excision 2 cm distal rectal polyp [place] teeth removed Family History Family History Mother Hypertension Family history of thyroid disease Cerebrovascular accident Grandparent Family history of malignant neoplasm of breast in first degree relative Social History Social History Smoking status: Never smoker Second hand tobacco smoke exposure: No Alcohol intake: never Alcohol use details: Rarely Substance use: never Substance use type: does not use Lack of Transportation: No Lack of Food: Never True Current Housing: I Have Housing Concerned About Future Housing: No Difficulty Paying Gas/Electric Bills: No Difficulty Paying for Meds: No Currently Unemployed: No Education: Bachelor's Degree Difficulty w/ Childcare or Family Care: No Living arrangements: with family Occupation/Education: occupation 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 Informed Consent: The patient's anesthetic plan and its attendant risks and benefits were discussed with the patient/family/POA. Questions were solicited and answers provided to the satisfaction of the patient/family/POA.
[2023-01-28 08:43] VITALS: BP 92/54; PULSE 93; RESP 21; O2SAT 99
[2023-01-28 08:53] VITALS: BP 102/68; PULSE 80; RESP 18; O2SAT 100
[2023-01-28 09:03] VITALS: BP 103/73; PULSE 68; RESP 17; O2SAT 100
== END 2023-01-28 09:14 | disposition home or self-care (01) ==
PROVIDERS: PCP Internal Medicine; Visit Provider Internal Medicine Gastroenterology
PROC: 0DJD8ZZ Inspection of Lower Intestinal Tract, Via Natural or Artificial Opening Endoscopic (ICD-10-PCS; CPT 45378; principal; 2023-01-28 08:30)
DX: Z08 Encounter for follow-up examination after completed treatment for malignant neoplasm (principal); K63.3 Ulcer of intestine; Z85.048 Personal history of other malignant neoplasm of rectum, rectosigmoid junction, and anus; Z85.89 Personal history of malignant neoplasm of other organs and systems; Z92.21 Personal history of antineoplastic chemotherapy; Z92.3 Personal history of irradiation; I10 Essential (primary) hypertension; K21.9 Gastro-esophageal reflux disease without esophagitis
CPT/HCPCS: 45380; 88305; 88342; J2704; J7120

== ENCOUNTER 2023-03-13 14:43 | Outpatient (CLI) | payer BC, SELFPAY ==
--- NOTE | ~2023-03-13 | XR_ITS ---
XR abdomen/kub 1V DATE: 03/13/2023 15:01 INDICATION: Bilateral calcium kidney stones TECHNIQUE: AP projection, 2 views COMPARISON: 06/21/2017 KUB FINDINGS: Occasional bilateral small calcifications overlie the renal silhouettes, the largest approx imately 2 mm on the right. No visceromegaly is evident. Status post cholecystectomy. The psoas shadows are intact. No evidence of bowel obstruction. IMPRESSION: Bilateral nephrolithiasis Reviewed, dictated and finalized at Location [facility]. Reviewed, dictated and finalized at location A. IMPRESSION: Bilateral nephrolithiasis
== END 2023-03-13 14:44 | disposition home or self-care (01) ==
PROVIDERS: PCP Internal Medicine; Visit Provider Urology
DX: N20.0 Calculus of kidney (principal)
CPT/HCPCS: 74018

== ENCOUNTER 2023-04-12 08:26 | Outpatient (CLI) | payer BC, SELFPAY ==
--- NOTE | ~2023-04-12 | CT_ITS ---
Clinical Indication: Rectal cancer, metastatic iliac lymph node CT Scan of the Chest, Abdomen, and Pelvis with Contrast: Technique: Contiguous sections were acquired throughout the chest, abdomen, and pelvis after intraven ous administration of 100 cc of Omnipaque 350. Dose reduction technique was used on this scan by uti lizing automated exposure control and iterative reconstruction technique. The dose-length product (DL P) was 419.19 mGy-cm. COMPARISON: PET scan dated 01/15/2023 Findings: There is no evidence of any significant mediastinal, hilar or axillary lymphadenopathy. The mediastin al soft tissues appear normal. There is no evidence of pleural or pericardial effusion. The lungs are clear. No pulmonary nodules or infiltrates are noted. The liver, spleen, pancreas, and adrenal glands are within normal limits. Small bilateral nonobstruct ing renal stones are present, measuring up to 2-3 mm. Cholecystectomy clips are present. No evidence of aortic aneurysm. No lymphadenopathy. No bowel obstruction or bowel wall thickening. There is no evidence to suggest acute appendicitis. Urinary bladder is unremarkable. Small calcified uterine fibroid present. Mild infiltration of the pa rarectal fat planes could reflect postradiation change. No juan lymphadenopathy seen. Impression: No definite evidence for active malignancy or metastatic disease. No suspicious lesion or lymphadenop athy identified. Possible postradiation change in the perirectal fat-sat soft tissues. Correlate with treatment histor y. Small calcified uterine fibroid. Numerous small bilateral nonobstructing renal stones. Reviewed, dictated and finalized at [facility]. Impression: No definite evidence for active malignancy or metastatic disease. No suspicious lesion or lymphadenopathy identified. Possible postradiation change in the perirectal fat-sat soft tissues. Correlate with treatment history. Small calcified uterine fibroid. Numerous small bilateral nonobstructing renal stones.
[2023-04-12 08:59] LABS: Estimated Glomerular Filt Rate > 60
== END 2023-04-12 08:27 | disposition home or self-care (01) ==
PROVIDERS: PCP Internal Medicine; Visit Provider Internal Medicine Medical Oncology
DX: C20 Malignant neoplasm of rectum (principal); C77.5 Secondary and unspecified malignant neoplasm of intrapelvic lymph nodes; D25.9 Leiomyoma of uterus, unspecified
CPT/HCPCS: 71260; 74177; Q9967

== ENCOUNTER → 2023-07-15 13:17 | Outpatient (CLI) | payer BC, SELFPAY ==
--- NOTE | ~2023-07-15 | CT_ITS ---
Clinical Indication: Rectal cancer restaging CT Scan of the Chest, Abdomen, and Pelvis with Contrast: Technique: Contiguous sections were acquired throughout the chest, abdomen, and pelvis after intraven ous administration of 100 cc of Omnipaque 350. Dose reduction technique was used on this scan by uti lizing automated exposure control and iterative reconstruction technique. The dose-length product (DL P) was 535.30 mGy-cm. COMPARISON: 04/12/2023 Findings: There is no evidence of any significant mediastinal, hilar or axillary lymphadenopathy. The mediastin al soft tissues and vascular structures appear normal. There is no evidence of pleural or pericardial effusion. The lungs are clear. No pulmonary nodules or infiltrates are noted. The liver, spleen, pancreas, adrenals and left kidney are within normal limits. Cholecystectomy clips are present. 5 mm nonobstructing right renal stone present. There are atherosclerotic calcifications of the aorta. No lymphadenopathy. No bowel obstruction or bowel wall thickening. There is no evidence to suggest acute appendicitis. Urinary bladder is unremarkable. Calcified uterine fibroid noted. No ascites. Impression: No distinct evidence for active malignancy or metastatic disease. 5 mm nonobstructing right renal stone. Calcified uterine fibroid. Reviewed, dictated and finalized at [facility]. 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 5 mm nonobstructing right renal stone. Calcified uterine fibroid.
[2023-07-15 13:36] LABS: Estimated Glomerular Filt Rate > 60
== END ==
PROVIDERS: PCP Internal Medicine; Visit Provider Internal Medicine Medical Oncology
DX: C20 Malignant neoplasm of rectum (principal); C77.5 Secondary and unspecified malignant neoplasm of intrapelvic lymph nodes; D25.9 Leiomyoma of uterus, unspecified; N20.0 Calculus of kidney
CPT/HCPCS: 71260; 74177; Q9967

== ENCOUNTER 2023-09-09 07:20 | Outpatient (CLI) | payer BC, SELFPAY ==
--- NOTE | ~2023-09-09 | XR_ITS ---
Supine and upright views of the abdomen Clinical history: Renal stone COMPARISON: 03/13/2023 Findings: Bowel gas pattern is nonspecific. No evidence for obstruction or free air. Several small bi lateral renal stones are present, largest in the right kidney measuring 2 mm. Cholecystectomy clips p resent. Osseous structures are intact. Impression: Small bilateral renal calculi. Reviewed, dictated and finalized at location . Impression: Small bilateral renal calculi.
== END 2023-09-09 07:21 ==
PROVIDERS: PCP Internal Medicine; Visit Provider Urology
DX: N20.0 Calculus of kidney (principal)
CPT/HCPCS: 74018

== ENCOUNTER 2023-10-02 08:30 | Outpatient (CLI) | payer BC, SELFPAY ==
--- NOTE | ~2023-10-02 | DEXA_ITS ---
? Bone Density Report? Name:? AIMEE QUEEN Patient ID:??? [id number] Age:? 58 Sex:? Female Ethnicity:? White Date of : 1965 Indication: postmenopausal; screening for osteoporosis; height loss; cancer; Referring Provider: Mervin Haynes Study: Bone densitometry was performed. Exam Date: October 02, 2023 Accession number: [id number] Bone Density: Region? BMD??? T-score? Z-score?? Classification AP Spine(L1-L4)? 0.967?? -0.7?0.6? Normal Femoral Neck (Left)? 0.714?? -1.2? 0.0? Osteopenia Total Hip (Left)? 0.810?? -1.1? -0.2?Osteopenia Femoral Neck (Right)? 0.766?? -0.7? 0.5? Normal Total Hip (Right)? 0.813?? -1.1? -0.2? Osteopenia Femoral Neck Mean? 0.740?? -1.0? 0.2? Normal Total Hip Mean? 0.811?? -1.1? -0.2? Osteopenia World Health Organization criteria for BMD impression classify patients as: Normal (T-score at or above -1.0), Osteopenia (T-score between -1.0 and -2.5), or Osteoporosis (T-score at or below -2.5). 10-year Fracture Risk(1): Major Osteoporotic Fracture? 7.0% Hip Fracture? 0.4% Reported Risk Factors: [place] (), Neck BMD=0.714, BMI=25.5 (1) FRAX? Version 3.08. Fracture probability calculated for an untreated patient. Fracture probability may be lower if the patient has received treatment. Clinical Information Provided by Patient: Has the following medical conditions: Cancer Patient maximum height was 62 Menopause Age: 50 No regular weight bearing exercise Drinks caffeinated beverages Onset of menses at age 13 Number of children 2 Impression: The patient has low bone mass, based on the Left Femoral Neck T- score. Discussion: BONE DENSITY IS LOW AT ONE OR MORE SKELETAL SITES. This patient's lowest T-score is low at one or more skeletal sites.? It meets the World Health Organization's (WHO) criteria for ?low bone mass?? (T-score between -1.0 and -2.5).? The patient's 10-year risk of fracture as calculated by FRAX is less than the threshold where pharmacological therapy is recommended by the National Osteoporosis Foundation (NOF).? However, all treatment decisions require clinical judgment and consideration of individual patient factors, including patient preferences, comorbidities, previous drug use, risk factors not captured in the FRAX model (e.g., frailty, falls, vitamin D deficiency, increased bone turnover, interval significant decline in bone density) and possible under or overestimation of fracture risk by FRAX. The patient should follow a healthful lifestyle (good nutrition with adequate calcium and vitamin D, and appropriate weight-bearing exercise). Follow-Up: Consider repeating this study in 2 to 3 years to reassess this patient's status, or sooner if there is some new clinical indication. Reported by: Dr. Khoi Powell on 10/02/2023 2:57:00 PM. MTDD
--- NOTE | ~2023-10-02 | MM_ITS ---
EXAMINATION: MM screening alycia BI w nereida HISTORY: Screening mammogram TECHNIQUE: Craniocaudal and mediolateral oblique 3-D tomosynthesis images were obtained and synthetic 2-D images were generated. CAD analysis was submitted and interpreted. COMPARISON: 04/15/2020 bilateral screening mammogram BREAST PARENCHYMAL COMPOSITION: There are scattered areas of fibroglandular density. FINDINGS: There is no evidence of suspicious mass, calcification, or architectural distortion to sugg est malignancy in either breast. There has been no suspicious interval change. IMPRESSION: 1. No mammographic evidence of malignancy. 2. Recommend routine screening mammography in one year. BI-RADS Category 1: Negative ..... Reviewed, dictated and finalized at location A.
== END 2023-10-02 08:31 | disposition home or self-care (01) ==
LOC: CHSIMG 08:32
PROVIDERS: PCP Internal Medicine; Visit Provider Obstetrics & Gynecology
DX: Z12.31 Encounter for screening mammogram for malignant neoplasm of breast (principal); Z78.0 Asymptomatic menopausal state; M85.89 Other specified disorders of bone density and structure, multiple sites
CPT/HCPCS: 77063; 77067; 77080

== ENCOUNTER 2023-10-15 07:03 | Outpatient (CLI) | payer BC, SELFPAY ==
--- NOTE | ~2023-10-15 | CT_ITS ---
EXAMINATION: CT chest abdomen pelvis w con DATE: 10/15/2023 07:49 INDICATION: Rectal cancer. TECHNIQUE: Computed tomography (CT) of the chest, abdomen, and pelvis was performed with 100 mL Omnip aque 350 intravenous contrast. Automated exposure control and iterative reconstruction technique were employed. The dose-length product was 503.54 mGy-cm. COMPARISON: CT chest, abdomen, and pelvis 07/15/2023 FINDINGS: CHEST CT: The lungs demonstrate mild atelectasis. A calcified left lung nodule is consistent with old granuloma tous disease. No pleural effusion. The heart size is normal. No pericardial effusion. There is severe cervical spondylosis and mild thoracic spondylosis. There is mild chronic anterior wedging of T7 celso tebral body. ABDOMEN/PELVIS CT: The liver is normal. There are changes of cholecystectomy. The pancreas and adrenal glands are normal . There is a 7 mm cyst in right kidney. There is a 1 mm stone in the left kidney. There are no dilate d loops of bowel. The appendix is normal. There are no pathologically enlarged lymph nodes. There is no free intraperitoneal fluid. There is a uterine fibroid. There is mild lumbar spondylosis. IMPRESSION: 1. No evidence of metastatic disease. Reviewed, dictated and finalized at location E.
[2023-10-15 07:38] LABS: Estimated Glomerular Filt Rate > 60
== END 2023-10-15 07:04 | disposition home or self-care (01) ==
PROVIDERS: PCP Internal Medicine; Visit Provider Internal Medicine Medical Oncology
DX: C20 Malignant neoplasm of rectum (principal); C77.5 Secondary and unspecified malignant neoplasm of intrapelvic lymph nodes
CPT/HCPCS: 71260; 74177; Q9967

== ENCOUNTER 2024-05-04 06:32 | Outpatient (CLI) | payer BC, SELFPAY ==
--- NOTE | ~2024-05-04 | CT_ITS ---
Clinical Indication: Rectal carcinoma CT Scan of the Chest, Abdomen, and Pelvis with Contrast: Technique: Contiguous sections were acquired throughout the chest, abdomen, and pelvis after intraven ous administration of 100 cc of Omnipaque 350. Dose reduction technique was used on this scan by solange pressley automated exposure control and iterative reconstruction technique. The dose-length product (DL P) was 547.02 mGy-cm. Comparison: 10/15/2023 Findings: There is no evidence of any significant mediastinal, hilar or axillary lymphadenopathy. The mediastin al soft tissues and vascular structures appear normal. There is no evidence of pleural or pericardial effusion. The lungs are clear. No pulmonary nodules or infiltrates are noted. The liver, spleen, pancreas, adrenals and kidneys are within normal limits. Cholecystectomy clips are present. No evidence of aortic aneurysm. No lymphadenopathy. Questionable minimal wall thickening at the distal rectum. No bowel obstruction. No peritoneal mass e vident. No acute inflammatory change evident. Urinary bladder is unremarkable. Calcified uterine fibroid present. No ascites. Impression: Questionable minimal wall thickening of the distal rectum. No evidence for metastatic disease. Reviewed, dictated and finalized at location . ANALYST Impression: Questionable minimal wall thickening of the distal rectum. No evidence for metastatic disease.
[2024-05-04 07:11] LABS: Estimated Glomerular Filt Rate > 60
== END 2024-05-04 06:33 | disposition home or self-care (01) ==
PROVIDERS: PCP Nurse Practitioner; Visit Provider Internal Medicine Medical Oncology
DX: C20 Malignant neoplasm of rectum (principal); C77.5 Secondary and unspecified malignant neoplasm of intrapelvic lymph nodes
CPT/HCPCS: 71260; 74177; Q9967